=== PATIENT | female | born 2000 ===

== ENCOUNTER 2019-11-22 09:34 | Emergency (ER) | payer OTHER ==
[~2019-11-22] VITALS: Ht 154.9 cm; Wt 60.8 kg
== END 2019-11-22 16:01 | disposition home or self-care (01) ==
LOC: ER 09:34
DX: K52.89 Other specified noninfective gastroenteritis and colitis (principal)

== ENCOUNTER 2019-11-30 09:02 | Outpatient (CLI) | payer OTHER | END 2019-11-30 15:00 | disposition home or self-care (01) | LOC: LAB 09:02 | DX: R10.84 Generalized abdominal pain (principal) ==

== ENCOUNTER → 2019-11-30 | Outpatient (CLI) | payer OTHER | END | disposition home or self-care (01) | LOC: MAMO-SONO 08:45 → RX STUDY 09:15 → MAMO-SONO 09:47 | DX: R10.84 Generalized abdominal pain (principal) ==